=== PATIENT | male | born 1950 | race Caucasian/White ===

== ENCOUNTER → 2019-07-13 10:12 | Outpatient (CLI) | payer MEDICARE, SELFPAY ==
[2019-07-13 10:20] LABS: Microscopic, Urine URINE MICROSCOPIC (MICROSCOPIC)
[2019-07-13 13:24] LABS: Hematocrit 41.4 % (42.0-52.0); Hemoglobin 13.5 g/dL (14.1-18.0)
[2019-07-13 13:31] LABS: Chloride 94 mmol/L (98-107); Sodium 136 mmol/L (136-145)
[2019-07-13 13:32] LABS: Albumin Level 4.2 g/dl (3.5-5.0)
[2019-07-13 13:34] LABS: Blood Urea Nitrogen 53 mg/dl (9-20); Carbon Dioxide 30 mmol/L (22.0-30.0); Estimated Glomerular Filt Rate 38 ml/min (>60); GFR (African American) 46 ML/MIN (>60); Glucose 117 mg/dl (74-100); Phosphorous 3.7 mg/dl (2.5-4.5); Uric Acid 11.3 mg/dl (3.5-8.5)
[2019-07-13 13:55] LABS: Appearance,Urine CLEAR (Clear); Bilirubin,Urine Negative (Negative); Blood, Urine Negative (Negative); Color,Urine YELLOW (Yellow); Glucose,Urine (UA) Negative (Negative); Ketones,Urine Negative (Negative); Leukocyte Esterase,Urine Negative (Negative); Nitrate,Urine Negative (Negative); PH,Urine 6.5 (5.0-8.5); Protein,Urine Negative (Negative); Specific Gravity, Urine 1.015 (1.005-1.030); Urobilinogen,Urine 0.2 EU/dl (0.2)
[2019-07-13 14:29] LABS: Bacteria,Urine Trace /lpf
[2019-07-14 13:07] LABS: Vitamin D 25 Hydroxy 27.5 ng/mL (30.0-100.0)
== END ==
DX: E27.8 Other specified disorders of adrenal gland (principal); E55.9 Vitamin D deficiency, unspecified
CPT/HCPCS: 36415; 80069; 81001; 82652; 84550; 85014; 85018

== ENCOUNTER 2020-04-10 09:37 | Emergency (ER) | payer MEDICARE, SELFPAY ==
[2020-04-10 09:47] VITALS: BP 144/86; PULSE 81; RESP 22; TEMP 36.9; O2SAT 91; BMI 54.7
--- NOTE | 2020-04-10 09:50 | HMH.EDUTC ---
[facility] [place] Disposition Clinical Impression: SMITA (obstructive sleep apnea), Cardiomegaly Pneumonia Qualifiers: Pneumonia type: due to unspecified organism Laterality: right Lung location: lower lobe of lung Qualified Code(s): J18.9 - Pneumonia, unspecified organism Disposition: Home, Self-Care Condition on Discharge: Good Instructions: DI for Pneumonia -- Adult Additional Instructions: You have been tested for COVID19. Those results should be available in 24-48 hours. Follow up with Ms [employer] to get new Cpap machines and supplies, adjust settings, etc. You received an antibiotic shot, but I have also sent medicine to the pharmacy. Please take that medication as directed until it is gone. Prescriptions: Cefdinir [Omnicef 300mg Capsule] 300 mg PO BID #20 cap Transmission Status: Pending to [facility] predniSONE [Prednisone 20mg Tab] 20 mg PO BID 5 Days #10 tab Transmission Status: Pending to [facility] Referrals: Neris Steve [Primary Care Provider] - Time of Disposition: 10:51 Medical Decision Making - Lv Inquiry Pt receiving controlled substance: No Vital Signs: 04/10/20 09:47 Temperature 98.4 F Temperature Source Oral Pulse Rate [Radial] 81 Respiratory Rate 22 Blood Pressure [Right Arm] 144/86 H Blood Pressure Mean [Right Arm] 105 Blood Pressure Source [Right Arm] Automatic Cuff Blood Pressure Position [Right Arm] Sitting 02 Sat by Pulse Oximetry 91 L Oxygen Delivery Method Room Air Orders (Tests/Meds): ORDERS Category Date Time Status Portable CXR [XR chest portable] Stat Exams 04/10/20 10:04 Taken Covid-19 Nasal PCR Sendout Stat Lab 04/10/20 10:45 Received - Radiology Data #1 Image(s): Chest Image Reviewed: Yes I reviewed the patient's radiology image Preliminary Findings: Abnormal (cardiomegaly, ? RLL infiltrate) [facility] [place] HPI - General Stated complaint: o2 levels low, cough Time Seen by Provider: 04/10/20 09:52 - History of Present Illness Provider Complaint: Patient states he hasn't felt well for a few days. Denies fever, but has had body aches and chills. Daughter states he was visibly shaking at times. Has had intermittent productive cough. Has had wheezing. Denies ear pain. Mild sore throat and drainage. Daughter states that his oxygen was low this am. It was in the 70s when he was laying down but has gotten better since he got up. He states he should be using a Cpap machine, but it broke about a month ago and he got one from his sister, but doesn't think that the setting are right and then his mask broke as well. No vomiting, diarrhea. No loss of taste or smell. Onset (ago): day(s) (3) Location: chest Radiation: non-radiation Relieving factors: none Exacerbating factors: none Associated symptoms: cough, fever/chills, malaise Treatments prior to arrival: none - Related Data Previous Rx's Medication Instructions Recorded Cefdinir [Omnicef 300mg Capsule] 300 mg PO BID #20 cap 04/10/20 predniSONE [Prednisone 20mg 20 mg PO BID 5 Days #10 tab 04/10/20 Tab] Allergies Allergy/AdvReac Type Severity Reaction Status Date / Time No Known Drug Allergies Allergy Unknown Unverified 04/30/17 15:11 [facility] History - Hepatitis A Screen Attestation statement:: This patient has been screened for Hepatitis A risk factors. I have reviewed the patient's past medical history: Yes ROS Obtained: Yes All systems reviewed & no additional complaints - Constitutional Constitutional: Reports body ache, Reports chills, Denies fever(s), Reports malaise - ENT Ears, Nose, Mouth, and Throat: Denies otalgia, Reports sinus pain, Reports sore throat - Cardiovascular Cardiovascular: Reports dyspnea - Respiratory Respiratory: Yes cough, Yes wheezing - Gastrointestinal Gastrointestingal: Denies: diarrhea, vomiting Physical Exam - General General appearance: alert, in no apparent distress, obese - Head Head exam: atr
--- NOTE | 2020-04-10 10:04 | XR_ITS ---
PROCEDURE: XR CHEST PORTABLE Referring Doctor: Stacie Sloan Patient Age:69Y CLINICAL HISTORY: sob. Large patient. 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 No convincing effusion but no pneumothorax but of patient may benefit from a PA and lateral chest of symptoms progressed but The upper lobe vascularity is slightly more pronounced than previous study but I would consider WNL no overt CHF. Chest wall view is limited on this portable study but unremarkable IMPRESSION: Prominent cardiomegaly Pulmonary vascularity is normal/upper normal No definitive/nor convincing pneumonia Upper normal markings infrahilar regions bilaterally, and slight opacity left left CP angle most likely reflect the patient's large size. However if respiratory symptoms progress follow-up two-view chest or CT chest may be required to optimally visualize lungs in this large patient Dictated by: Franklyn Stratton MD 04/10/2020 15:23 Franklyn Stratton MD in [place] 04/10/2020 15:23
[2020-04-10 11:16] VITALS: BP 144/86; PULSE 81; RESP 22; TEMP 36.9; O2SAT 91
[2020-04-11 10:08] LABS: Covid-19 Nasal PCR Sendout UK NOT DETECTED
== END 2020-04-10 11:17 | disposition home or self-care (01) ==
PROVIDERS: Emergency Provider Physician Assistant; PCP Nurse Practitioner Family
DX: J18.9 Pneumonia, unspecified organism (principal); G47.33 Obstructive sleep apnea (adult) (pediatric); I51.7 Cardiomegaly; E11.9 Type 2 diabetes mellitus without complications; Z20.828 Contact with and (suspected) exposure to other viral communicable diseases; I10 Essential (primary) hypertension; E78.5 Hyperlipidemia, unspecified; E66.9 Obesity, unspecified; Z68.43 Body mass index [BMI] 50.0-59.9, adult; Z79.899 Other long term (current) drug therapy
CPT/HCPCS: 71045; 96372; 99202; J1030; U0003

== ENCOUNTER 2020-04-10 19:17 | Observation (INO) | payer MEDICARE, SELFPAY ==
[2020-04-10] VITALS (9 sets, daily range): BP systolic 132–165; BP diastolic 68–88; PULSE 85–99; RESP 17–26; TEMP 36.9; O2SAT 74–99; BMI 56.3; BMI 58.6
--- NOTE | 2020-04-10 20:11 | ECG_ITS ---
APPROVED REPORT Exam: Resting ECG HR:91 bpm ECG Measurements Heart Rate 91 AXES ME 210 P 54 QRSd 132 QRS -39 QT 398 T 13 QTc 489 Conclusion Sinus rhythm with 1st degree AV block with frequent premature ventricular complexes Left axis deviation Right bundle branch block Inferior infarct, age undetermined Anteroseptal infarct, age undetermined Abnormal ECG Electronically signed by : Gordon Myers, 04/11/2020 07:22:07
--- NOTE | 2020-04-10 20:11 | XR_ITS ---
PROCEDURE: XR CHEST 2V CLINICAL HISTORY: SOA Shortness of air COMPARISON: CR CXR CHEST(2 VIEWS-NOT PORTABLE) from 12/31/2016 CR XR CHEST PORTABLE from 04/10/2020 FINDINGS: There are low lung volumes. There is cardiomegaly with mild prominence of the pulmonary vessels.. No lobar consolidation or collapse. No acute bony abnormalities. IMPRESSION: There are low lung volumes with cardiomegaly. Pulmonary vessels are slightly prominent and may in part be due to mild CHF versus the poor inspiration. Overall not significantly changed. Dictated by: Rafat Kaur MD 04/11/2020 07:14 Rafat Kaur MD in [place] 04/11/2020 07:14
--- NOTE | 2020-04-10 20:13 | HMH.EDSOB ---
ED Disposition Clinical Impression: Renal insufficiency, SMITA (obstructive sleep apnea) Respiratory failure with hypercapnia Qualifiers: Chronicity: acute Qualified Code(s): J96.02 - Acute respiratory failure with hypercapnia Diabetes mellitus Qualifiers: Diabetes mellitus type: type 2 Diabetes mellitus terminal make up operator insulin use: unspecified terminal make up operator insulin use status Diabetes mellitus complication status: with other specified complication Qualified Code(s): E11.69 - Type 2 diabetes mellitus with other specified complication Obesity Qualifiers: Obesity type: due to excess calories Obesity classification: adult class 3 (BMI >= 40) Serious obesity comorbidity presence: with serious comorbidity Body mass index: BMI 50.0-59.9 Qualified Code(s): E66.01 - Morbid (severe) obesity due to excess calories; Z68.43 - Body mass index [BMI] 50.0-59.9, adult Congestive heart failure Qualifiers: Heart failure type: unspecified Heart failure chronicity: unspecified Qualified Code(s): I50.9 - Heart failure, unspecified Disposition: Admitted As Inpatient Condition on Discharge: Fair Referrals: Neris Steve [Primary Care Provider] - - Critical Care Critical Care Time: No Attestation: On 04/10/20, the high probability of a clinically significant, sudden or life threatening deterioration of the following system(s) required my full and direct attention, intervention and personal management. The time I documented below is in addition to time spent performing reported procedures but includes the following listed in this critical care notation. Medical Decision Making - Medical Records Medical records reviewed: Yes: I reviewed the patient's medical records. - Lv Inquiry Pt receiving controlled substance: No Vital Signs: 04/10/20 19:19 04/10/20 20:19 Temperature 98.4 F Temperature Source Oral Pulse Rate [Apical] 91 H 85 Respiratory Rate 22 24 Blood Pressure [Right Arm] 154/88 H 165/85 H Blood Pressure Mean [Right Arm] 110 111 Blood Pressure Source [Right Arm] Automatic Cuff Automatic Cuff Blood Pressure Position [Right Arm] Sitting Supine 02 Sat by Pulse Oximetry 95 95 Oxygen Delivery Method Nasal Cannula Nasal Cannula Oxygen Flow Rate (LPM) 2 2 - Lab Data Lab results reviewed: Yes: I reviewed the patient's lab results. Lab Results 04/10/20 19:45: WBC 8.3, RBC 5.34, Hgb 15.0, Hct 48.4, MCV 90.6, MCH 28.1, MCHC 31.0 L, RDW 16.0, Plt Count 241, MPV 8.9, Neut % (Auto) 76.7, Lymph % (Auto) 13.1, [place] % (Auto) 6.7, Eos % (Auto) 3.0, Baso % (Auto) 0.6, Neut # (Auto) 6.3, Lymph # (Auto) 1.1, [place] # (Auto) 0.6, Eos # (Auto) 0.3, Baso # (Auto) 0.1 04/10/20 19:45: Sodium 138, Potassium 4.4, Chloride 94 L, Carbon Dioxide 37 H, Anion Gap 11.4, BUN 44 H, Creatinine 1.50 H, Estimated Creat Clear 45, Estimated GFR 47 L, Est GFR ( Amer) 56 L, Glucose 237 H, Calcium 9.3, Total Bilirubin 0.3, Direct Bilirubin 0.3, Conjugated Bilirubin 0.0, Indirect Bilirubin 0.0, Unconjugated Bilirubin 0.1, AST 36, ALT 25, Alkaline Phosphatase 68, Troponin I < 0.01, Total Protein 7.1, Albumin 3.8, Procalcitonin 0.119 04/10/20 19:45: Lactate 1.3 04/10/20 19:45: SARS-CoV-2 IgG Ab (Rapid) Negative, SARS-CoV-2 IgM Ab (Rapid) Negative 04/10/20 19:45: NT-Pro-B Natriuret Pep 643 H, TSH 2.12, Thyroxine (T4) 8.0 04/10/20 19:45: D-Dimer 1.10 04/10/20 20:30: Chlamy pneumoniae PCR Not detected, Adenovirus (PCR) Not detected, B. pertussis DNA (PCR) Not detected, Coronavirus OC43 (PCR) Not detected, Coronavirus HKU1 (PCR) Not detected, Coronavirus 229E (PCR) Not detected, SARS-CoV-2 (PCR) Not detected, Coronavirus NL63 (PCR) Not detected, Human Metapneumovir PCR Not detected, Influenza A (H1) PCR Not detected, Influ A (H1N1/09) PCR Not detected, Influenza A (H3) PCR Not detected, Influenza Type A (PCR) Not detected, Influenza Type B (PCR) Not detected, M. pneumoniae (PCR) Not detected, Parainfluenza 1 (PCR) Not detected, Parainfluenza 2 (PCR) Not detected, Parainfluenza 3 (PC
[2020-04-10 20:39] LABS: ABG Base Excess 12.3 mmol/L (-2.4-2.3); ABG HCO3 39.1 mmhg (22.0-26.0); ABG Oxygen Saturation 95 % (90-100); ABG PH 7.28 mmol/L (7.35-7.45); ABG PO2 84.6 mmhg (80-100); ABG TCO2 41.7 mmhg (23-27)
[2020-04-10 20:40] LABS: ABG PCO2 86.1 mmhg (35.0-45.0); Allen's Test Y; Oxygen 2 %; Source R/R
[2020-04-10 20:41] LABS: Adenovirus,PCR Not Detected (NotDetected); Bordetella Pertussis Not Detected (NotDetected); Chlamydophila Pneumoniae, PCR Not Detected (NotDetected); Coronavirus 19, PCR Not Detected (NotDetected); Coronavirus 229E Not Detected (NotDetected); Coronavirus NL63 Not Detected (NotDetected); Coronavirus OC43 Not Detected (NotDetected); Coronovirus HKU1,PCR Not Detected (NotDetected); Human Metapneumovirus Not Detected (NotDetected); Influenza A, PCR Not Detected (NotDetected); Influenza AH1, 2009 Not Detected (NotDetected); Influenza AH1, PCR Not Detected (NotDetected); Influenza AH3,PCR Not Detected (NotDetected); Influenza B, PCR Not Detected (NotDetected); Mycoplasma Pneumoniae, PCR Not Detected (NotDetected); Parainfluenza 1, PCR Not Detected (NotDetected); Parainfluenza 2, PCR Not Detected (NotDetected); Parainfluenza 3, PCR Not Detected (NotDetected); Parainfluenza 4, PCR Not Detected (NotDetected); Respiratory Syncytial Virus Not Detected (NotDetected); Rhinovirus/Enterovirus Not Detected (NotDetected)
[2020-04-10 20:41] LABS: Basophils # 0.1 K/mm3 (0-0.2); Basophils % 0.6 % (0.1-2.0); Chloride 94 mmol/L (98-107); Eosinophils # 0.3 K/mm3 (0.0-0.4); Hematocrit 48.4 % (42.0-52.0); Lymphocytes # 1.1 K/mm3 (0.7-4.5); Lymphocytes % 13.1 % (10-50); Mean Corpuscular Hemoglobin 28.1 pg (27.0-31.2); Mean Corpuscular Volume 90.6 fl (80-94); Mean Platelet Volume 8.9 fl (7.4-10.4); Monocytes # 0.6 K/mm3 (0.1-1.0); Monocytes % 6.7 % (1.7-9.3); Neutrophils # 6.3 K/mm3 (1.8-7.8); Neutrophils % 76.7 % (37.0-80.0); Platelet Count 241 K/mm3 (142-424); Potassium 4.4 mmoL/L (3.5-5.1); Red Blood Count 5.34 M/mm3 (4.60-6.20); Sodium 138 mmol/L (136-145); White Blood Count 8.3 K/mm3 (4.8-10.8)
[2020-04-10 20:43] LABS: Alanine Aminotransferase 25 U/L (12-78); Bilirubin,Unconjugated 0.1 mg/dL (0.0-1.1); Blood Urea Nitrogen 44 mg/dl (9-20); Creatinine Clearance Estimated 45 mL/min (50-200); Estimated Glomerular Filt Rate 47 ml/min (>60); GFR (African American) 56 ML/MIN (>60)
[2020-04-10 20:44] LABS: Albumin Level 3.8 g/dl (3.5-5.0); Alkaline Phosphatase 68 U/L (38-126); Aspartate Amino Transferase 36 U/L (17-59); Bilirubin,Direct 0.3 mg/dl (0.0-0.4); Bilirubin,Total 0.3 mg/dl (0.2-1.3); Calcium 9.3 mg/dl (8.4-10.2); Glucose 237 mg/dl (74-100); Lactic Acid 1.3 mmol/L (0.7-2.1); Total Protein,Serum 7.1 g/dl (6.3-8.2)
[2020-04-10 21:01] LABS: Procalcitonin 0.119 ng/mL (0.0-2.0)
[2020-04-10 21:07] LABS: NT Pro Brain Natriuretic Pep. 643 pg/mL (0-125)
[2020-04-10 21:29] LABS: Thyroid Stimulating Hormone 2.12 uIU/mL (0.465-4.68)
[2020-04-10 21:30] LABS: Coronavirus 19 IgG Antibody Negative (Negative); Coronavirus 19 IgM Antibody Negative (Negative)
[2020-04-10 21:31] LABS: Anion Gap 11.4 mEq/L (5-15); Carbon Dioxide 37 mmol/L (22.0-30.0); Troponin I < 0.01 ng/ml (0.00-0.034)
--- NOTE | 2020-04-10 22:57 | PC.NURSE ---
Staci order per Anahi in pharmacy
--- NOTE | 2020-04-10 23:32 | PC.NURSE ---
patient up to floor via stretcher.
[2020-04-11] VITALS (16 sets, daily range): BP systolic 118–146; BP diastolic 57–87; PULSE 80–110; RESP 18–26; TEMP 36.1–37.4; O2SAT 92–99; BMI 58.8
[2020-04-11 00:16] LABS: POC Glucose,Bedside 188 (70-110)
--- NOTE | 2020-04-11 00:16 | PC.WOUNDNOTE ---
Wound Location: LLQ ABD scab, left flank rash Length: scab- circular 0.5cm x 0.5cm Inflammation/swelling Y/N: Y Pain and/or tenderness Y/N: N Color: Small amount of bordering redness to scab and red, unraised rash area
--- NOTE | 2020-04-11 00:39 | PC.NURSE ---
pt's daughter will bring in POA and living will tomorrow
[2020-04-11 00:44] LABS: Troponin I < 0.01 ng/ml (0.00-0.034)
[2020-04-11 03:12] LABS: Troponin I < 0.01 ng/ml (0.00-0.034)
[2020-04-11 06:21] LABS: POC Glucose,Bedside 243 (70-110)
--- NOTE | 2020-04-11 06:27 | PC.NURSE ---
pt has rested some t/o shift, no acute changes since prior assessment on admission, pt did become confused one time during the night, this morning pt does not seem to be as confused, is currently able to tell me his name and birthdate, al catheter patent and is now draining red tinged urine, urine was yellow at admission, pt remains at bipap with O2 sats 95-99%, HR 99-106, systolic BP 146-148, pt has no complaints of SOA or chest pain
--- NOTE | 2020-04-11 07:10 | HMH.HP ---
*Admission Date: 04/10/20 *Chief complaint: Shortness of breath *History of present illness: 69-year-old male with diabetes and rheumatoid arthritis presented to the emergency department with worsening shortness of breath after being seen in the urgent treatment clinic earlier in the day. Patient reported sensation of wheezing and dyspnea. Patient believes this all began after his current CPAP/BiPAP, which is rather old, malfunctioned and was no longer effective. He tried to make up for this by using his sisters CPAP but this did not seem to help him as much as his personal device. Patient reports his CPAP malfunction a few days ago . He presented to the [facility] and was treated but shortly thereafter returned to the emergency department with worsening shortness of breath. He denies symptoms of infection. He denies chest pain. Work-up in the ER revealed acute on chronic respiratory failure with mild acidosis and hypercapnia consistent with acute on chronic hypercapnia. Patient was also felt to have some element of congestive heart failure. Patient was admitted and placed on BiPAP overnight. Nursing staff reports patient had episodes of confusion initially but these improved as the night wore on and he has become oriented to person and place. Patient does note improvement this morning. [facility] History Medical History: Reports:: Congestive Heart Failure, Diabetes Mellitus Type 2, Hyperlipidemia, Hypertension Denies:: Cancer, Diabetes Mellitus Type 1, Internal Pacemaker, MRSA *Have you ever received a pneumonia vaccine?: Yes *Have you received a flu vaccine this season?: Yes Other Medical History: Reports: Arthritis Laterality Cases: Right: Total Hip Replacement Other Surgeries: Yes: Colonoscopy. No: Pacemaker Amputation: No Fractures: No - *Social History Last grade of school completed: High school graduate Smoking Status: Never smoker Alcohol Intake: former Alcohol Intake Frequency:: other *Occupational Status:: retired Housing: house Household Members: children *Travel in the last 8 weeks: None Family Hx:: Cancer, Coronary Artery Disease, Hyperlipidemia, Hypertension Review of Systems - Constitutional Denies body ache(s), Denies chills, Denies lack of energy, Denies malaise, Denies night sweats - ENT Denies change in voice, Denies ear pain - *Cardiovascular Reports shortness of breath with activity, Reports generalized swelling, Denies chest pain, Denies chest pain at rest, Denies chest pain with activity - *Respiratory Reports cough, Reports shortness of breath, Reports shortness of breath with activity, Reports wheezing - *Gastrointestinal Denies abdominal pain, Denies belching, Denies bloating, Denies heartburn - *Genitourinary Denies difficulty urinating - *Musculoskeletal Reports joint pain - *Neurologic Denies headache(s), Denies seizure-like activity Meds Home Medications Medication Instructions Recorded Confirmed Type Cefdinir [Omnicef 300mg Capsule] 300 mg PO BID 04/10/20 04/10/20 History Fenofibrate,Micronized 200 mg PO HS 04/10/20 04/11/20 History [Fenofibrate] Furosemide [Lasix 40mg tab] 40 mg PO QID 04/10/20 04/11/20 History Insulin Aspart Prot/Insuln Asp 48 units SQ TID 04/10/20 04/11/20 History [Novolog Mix 70/30 Flexpen 100 Units/mL 3mL] Insulin Glargine,Hum.rec.anlog 36 units SQ DAILY 04/10/20 04/11/20 History [Lantus Solostar 100 Units/mL 3mL flexpen] Metoprolol Tartrate [Lopressor 100 100 mg PO BID 04/10/20 04/11/20 History mg Tablets] Mirabegron [Myrbetriq] 50 mg PO DAILY 04/10/20 04/11/20 History Pravastatin Sodium [Pravachol 40mg 40 mg PO HS 04/10/20 04/11/20 History Tablet] Tamsulosin HCl [Flomax 0.4mg 0.8 mg PO HS 04/10/20 04/11/20 History capsule] lisinopriL [Lisinopril 10mg Tab] 10 mg PO DAILY 04/10/20 04/11/20 History predniSONE [Prednisone 20mg 20 mg PO BID 04/10/20 04/10/20 History Tab] Allergies Allergy/AdvReac Typ
[2020-04-11 07:29] LABS: ABG Base Excess 6.4 mmol/L (-2.4-2.3); ABG HCO3 33.4 mmhg (22.0-26.0); ABG Oxygen Saturation 80 % (90-100); ABG PH 7.27 mmol/L (7.35-7.45); ABG TCO2 35.7 mmhg (23-27)
--- NOTE | 2020-04-11 07:31 | P.CONPHA_ITS ---
[facility] Pharmacy VTE Monitoring - Patient Demographics Admission date: 04/10/20 Report Date: 04/11/20 Time: 07:31 Allergies/Adverse Reactions: Patient Allergies Sulfa (Sulfonamide Antibiotics) Allergy (Verified 04/11/20 01:01) Height: 1.7 m Weight: 169.672 kg Patient Problems: Current Active Problems SMITA (obstructive sleep apnea) (Acute) Respiratory failure with hypercapnia (Acute) Renal insufficiency (Acute) Diabetes mellitus (Acute) Obesity (Acute) Acute and chronic respiratory failure (Acute) Acute respiratory failure with hypoxia and hypercapnia (Acute) Morbid obesity with BMI of 50.0-59.9, adult (Acute) Rheumatoid arthritis (Acute) - VTE Risk Labs: VTE Related Lab Results Hgb 15.0 g/dL (14.1-18.0) 04/10/20 19:45 Hct 48.4 % (42.0-52.0) 04/10/20 19:45 Plt Count 241 K/mm3 (142-424) 04/10/20 19:45 BUN 44 mg/dl (9-20) H 04/10/20 19:45 Creatinine 1.50 mg/dl (0.66-1.25) H 04/10/20 19:45 Estimated Creat Clear 45 mL/min (50-200) 04/10/20 19:45 VTE Score: 10 VTE Risk Level: Moderate Risk - Prophylaxis VTE Prophylaxis Ordered?: Yes Types of VTE Prophylaxis: TEDS Knee High Location of Applied Device: Bilateral Lower Extremeties
[2020-04-11 07:33] LABS: Basophils % 0.2 % (0.1-2.0); Eosinophils % 0.2 % (0.1-12.0); Hematocrit 51.9 % (42.0-52.0); Hemoglobin 15.4 g/dL (14.1-18.0); Lymphocytes # 0.4 K/mm3 (0.7-4.5); Lymphocytes % 5.6 % (10-50); Mean Corpuscular HGB Conc 29.7 g/dL (31.8-35.4); Mean Corpuscular Hemoglobin 27.2 pg (27.0-31.2); Mean Corpuscular Volume 91.6 fl (80-94); Mean Platelet Volume 8.9 fl (7.4-10.4); Monocytes # 0.2 K/mm3 (0.1-1.0); Monocytes % 2.9 % (1.7-9.3); Neutrophils # 6.7 K/mm3 (1.8-7.8); Neutrophils % 91.1 % (37.0-80.0); Platelet Count 247 K/mm3 (142-424); Red Blood Count 5.66 M/mm3 (4.60-6.20); Red Cell Distribution Width 15.6 % (11.5-17.5); White Blood Count 7.3 K/mm3 (4.8-10.8)
[2020-04-11 07:36] LABS: Chloride 96 mmol/L (98-107); Potassium 5.5 mmoL/L (3.5-5.1); Sodium 141 mmol/L (136-145)
[2020-04-11 07:38] LABS: Blood Urea Nitrogen 41 mg/dl (9-20); Creatinine Clearance Estimated 42 mL/min (50-200); Estimated Glomerular Filt Rate 43 ml/min (>60); GFR (African American) 52 ML/MIN (>60)
[2020-04-11 07:39] LABS: Calcium 9.3 mg/dl (8.4-10.2); Cholesterol 155 mg/dl (140-200); Glucose 267 mg/dl (74-100); Triglycerides 176 mg/dl (30-150); VLDL Cholesterol 35 mg/dL (0-40)
[2020-04-11 07:40] LABS: Chol/HDL Ratio 2.9 (1-3.5); HDL Cholesterol 53 mg/dl (40-60)
[2020-04-11 07:44] LABS: MANUAL DIFFERENTIAL MANUAL DIFFERENTIAL (MANUAL DIFF)
[2020-04-11 07:46] LABS: Anion Gap 12.5 mEq/L (5-15); Carbon Dioxide 38 mmol/L (22.0-30.0)
[2020-04-11 07:50] LABS: Allen's Test Acceptable; Source Right Radial
[2020-04-11 07:52] LABS: ABG PCO2 74.5 mmhg (35.0-45.0)
[2020-04-11 07:53] LABS: ABG PO2 47.1 mmhg (80-100)
--- NOTE | 2020-04-11 09:30 | PC.NURSE ---
Spoke to about Bipap settings, changed to S/T=20/10. Pt getting back better volumes. Pulse ox reading 92%
--- NOTE | 2020-04-11 09:38 | HMH.PHAINT ---
MEDICATION RECONCILIATION COMPLETED ON PATIENT USING EXTERNAL FILL HISTORY FROM PHARMACY. -SAYRA GARCÍA, STAND
--- NOTE | 2020-04-11 09:45 | PC.NURSE ---
Notified Dr. Crowder of critical abg at [id number]. He ordered pt to cont on bipap at this time.
[2020-04-11 10:10] LABS: Lymphocytes % 9 % (10-50); Monocytes % 2 % (2-9); Neutrophils % 89 % (42-76); Platelet Estimate Normal; RBC Morphology Normal; Total Cells Counted 100
[2020-04-11 11:20] LABS: POC Glucose,Bedside 184 (70-110)
--- NOTE | 2020-04-11 11:29 | HMH.CNCARD ---
History of Present Illness Consult date: 04/11/20 Requesting physician: Gordon Crowder Consult reason: shortness of breath Chief complaint: Shortness of breath History of present illness: This is a 69-year-old white gentleman who was admitted to the hospital with worsening shortness of breath after being seen in the urgent treatment center yesterday. The patient states that he was getting progressively more short of breath and having wheezing noted with his shortness of breath. He denied any bilateral lower extremity edema. He states that his shortness of breath initially began after his CPAP/BiPAP at home began to malfunction and was no longer working. He borrowed his sister CPAP machine which was just not working for him like his and did. He went to the urgent treatment center and was worked up and given a steroid and a shot. He states that his symptoms worsened after leaving the urgent treatment center and then he went to the emergency department. He states that he has not had any chest pain or pressure. He denies any lower extremity edema. He denies any fever, chills, nausea, vomiting, diarrhea. He does have associated PND and orthopnea with his shortness of breath. While in the emergency department he was found to have acute on chronic respiratory failure and he was hypercapnic. The patient has been treated with BiPAP overnight and through the day today. He states that shortness of breath is somewhat better. He did have a little confusion this morning but he is alert and oriented today. His daughter states that he was really confused at home prior to coming into the emergency department but this has improved. He has ruled out for an [place]. [facility] History I have reviewed the patient's past medical history: Yes Medical History: Reports:: Congestive Heart Failure, Diabetes Mellitus Type 2, Hyperlipidemia, Hypertension Denies:: Cancer, Diabetes Mellitus Type 1, Internal Pacemaker, MRSA *Have you ever received a pneumonia vaccine?: Yes *Have you received a flu vaccine this season?: Yes Other Medical History: Reports: Arthritis Laterality Cases: Right: Total Hip Replacement Other Surgeries: Yes: Colonoscopy. No: Pacemaker Amputation: No Fractures: No - *Social History Last grade of school completed: High school graduate Smoking Status: Never smoker Alcohol Intake: former Alcohol Intake Frequency:: other *Occupational Status:: retired Housing: house Household Members: children *Travel in the last 8 weeks: None Family Hx:: Cancer, Coronary Artery Disease, Hyperlipidemia, Hypertension Meds Home Medications Medication Instructions Recorded Confirmed Type Cefdinir [Omnicef 300mg Capsule] 300 mg PO BID 04/10/20 04/10/20 History Fenofibrate,Micronized 200 mg PO HS 04/10/20 04/11/20 History [Fenofibrate] Furosemide [Lasix 40mg tab] 40 mg PO DIRECTED 04/10/20 04/11/20 History Insulin Aspart Prot/Insuln Asp 48 units SQ TID 04/10/20 04/11/20 History [Novolog Mix 70/30 Flexpen 100 Units/mL 3mL] Insulin Glargine,Hum.rec.anlog 36 units SQ DAILY 04/10/20 04/11/20 History [Lantus Solostar 100 Units/mL 3mL flexpen] Metoprolol Tartrate [Lopressor 100 100 mg PO BID 04/10/20 04/11/20 History mg Tablets] Mirabegron [Myrbetriq] 50 mg PO DAILY 04/10/20 04/11/20 History Pravastatin Sodium [Pravachol 40mg 40 mg PO HS 04/10/20 04/11/20 History Tablet] Tamsulosin HCl [Flomax 0.4mg 0.8 mg PO HS 04/10/20 04/11/20 History capsule] lisinopriL [Lisinopril 10mg Tab] 10 mg PO DAILY 04/10/20 04/11/20 History predniSONE [Prednisone 20mg 20 mg PO BID 04/10/20 04/10/20 History Tab] Allergies Allergy/AdvReac Type Severity Reaction Status Date / Time Sulfa (Sulfonamide Allergy Verified 04/11/20 01:01 Antibiotics) Exam Vital signs and Labs for Last 24 Hours: Temp Pulse Resp BP Pulse Ox 97.0 F L 87 20 128/79 92 L 04/11/20 11:08 04/11/20 11:08 04/11/20 11:08 04/11/20 11
--- NOTE | 2020-04-11 12:53 | PC.NURSE ---
RA sat at rest=80%, returned pt on 4 L NC
[2020-04-11 15:38] LABS: POC Glucose,Bedside 319 (70-110)
--- NOTE | 2020-04-11 16:36 | PC.NURSE ---
Pt alert and oriented. Wheezes in upper lobes. Pt has been on bipap most of day. CB in reach. Pt alert and oriented. NAD. No c/o at this time. Has been turned and repositioned but mostly returns to supine position. VSS. Will cont to mx this shift.
[2020-04-11 22:05] LABS: POC Glucose,Bedside 341 (70-110)
[2020-04-12] VITALS (16 sets, daily range): BP systolic 114–153; BP diastolic 68–95; PULSE 80–100; RESP 19–25; TEMP 36.2–37.4; O2SAT 92–96; BMI 58.3
[2020-04-12 06:30] LABS: POC Glucose,Bedside 260 (70-110)
[2020-04-12 06:37] LABS: ABG Base Excess 13.9 mmol/L (-2.4-2.3); ABG HCO3 39.8 mmhg (22.0-26.0); ABG Oxygen Saturation 95 % (90-100); ABG PH 7.33 mmol/L (7.35-7.45); ABG PO2 76.7 mmhg (80-100); ABG TCO2 42.1 mmhg (23-27)
[2020-04-12 06:40] LABS: Allen's Test Acceptable; Oxygen 40 %; Pressure Support 10; Source Left Radial; Tidal Volume 20/10; Vent Rate 21
[2020-04-12 06:42] LABS: ABG PCO2 76.6 mmhg (35.0-45.0)
--- NOTE | 2020-04-12 06:46 | PC.NURSE ---
Critical lab value PCO2 76 reported to Vel KENNY at this time.
--- NOTE | 2020-04-12 07:03 | HMH.ACPN2 ---
Internal Medicine - PN: Subj *Date: 04/12/20 *Time: 07:03 Interval history: Patient's only complaint this morning is some pain that he had in his leg which was medicated with Tylenol which did not quite eliminate the pain. Otherwise he reports improvement in breathing. He does clarify that he does not wear oxygen at home other than the oxygen he receives through his home BiPAP machine. Exam Vital signs and Labs for Last 24 Hours: Temp Pulse Resp BP Pulse Ox 99.4 F 94 H 22 114/73 96 04/12/20 04:00 04/12/20 06:26 04/12/20 04:00 04/12/20 04:00 04/12/20 04:00 Laboratory Results - last 24 hr 04/11/20 06:00: Specimen Source Right radial, O2 % 2l nc, ABG pH 7.27 L, ABG pCO2 74.5 H, ABG pO2 47.1 L, ABG HCO3 33.4 H, ABG Total CO2 35.7 H, ABG O2 Saturation 80 L*, ABG Base Excess 6.4 H, Rafat Test Acceptable 04/11/20 06:58: WBC 7.3, RBC 5.66, Hgb 15.4, Hct 51.9, MCV 91.6, MCH 27.2, MCHC 29.7 L, RDW 15.6, Plt Count 247, MPV 8.9, Neut % (Auto) 91.1 H, Lymph % (Auto) 5.6 L, [place] % (Auto) 2.9, Eos % (Auto) 0.2, Baso % (Auto) 0.2, Neut # (Auto) 6.7, Lymph # (Auto) 0.4 L, [place] # (Auto) 0.2, Eos # (Auto) 0.0, Baso # (Auto) 0.0, Total Counted 100, Neutrophils % (Manual) 89 H, Lymphocytes % (Manual) 9 L, Monocytes % (Manual) 2, Platelet Estimate Normal, RBC Morphology Normal 04/11/20 06:58: Sodium 141, Potassium 5.5 H D, Chloride 96 L, Carbon Dioxide 38 H, Anion Gap 12.5, BUN 41 H, Creatinine 1.60 H, Estimated Creat Clear 42, Estimated GFR 43 L, Est GFR ( Amer) 52 L, Glucose 267 H, Calcium 9.3, Magnesium 2.0, Triglycerides 176 H, Cholesterol 155, LDL Cholesterol Direct 65.90 L, VLDL Cholesterol 35, HDL Cholesterol 53, Cholesterol/HDL Ratio 2.9 04/11/20 11:07: POC Glucose 184 H 04/11/20 15:19: POC Glucose 319 H* 04/11/20 20:16: POC Glucose 341 H* 04/12/20 05:58: POC Glucose 260 H 04/12/20 06:30: Specimen Source Left radial, O2 % 40, ABG pH 7.33 L, ABG pCO2 76.6 H, ABG pO2 76.7 L, ABG HCO3 39.8 H, ABG Total CO2 42.1 H, ABG O2 Saturation 95, ABG Base Excess 13.9 H, Rafat Test Acceptable, Vent Rate 21, Tidal Volume 20/10 I & O for Last 24 hours: Intake & Output 04/09/20 04/10/20 04/11/20 04/12/20 11:59 11:59 11:59 11:59 Intake Total 1280 / 1280 850 / 850 Output Total 1979 2375 / 2375 Balance -700 / -700 -1525 / -1525 Weight 374 lb 1 oz 372 lb 2.244 oz - Constitutional no acute distress - *Routine Respiratory Exam Present: CTA bilaterally - *Routine Cardiovascular Exam Present: RRR - *Routine Abdominal Exam Present: soft, normoactive bowel sounds. Absent: tenderness Assessment and Plan (1) Acute respiratory failure with hypoxia and hypercapnia Status: Acute Category: Medical Code(s): J96.01 - Acute respiratory failure with hypoxia; J96.02 - Acute respiratory failure with hypercapnia (2) Acute and chronic respiratory failure Status: Acute Category: Medical Code(s): J96.20 - Acute and chronic respiratory failure, unspecified whether with hypoxia or hypercapnia (3) Morbid obesity with BMI of 50.0-59.9, adult Status: Acute Category: Medical Code(s): E66.01 - Morbid (severe) obesity due to excess calories; Z68.43 - Body mass index [BMI] 50.0-59.9, adult (4) Congestive heart failure Status: Suspected Qualifiers: Heart failure type: unspecified Heart failure chronicity: unspecified Qualified Code(s): I50.9 - Heart failure, unspecified Category: Medical Code(s): I50.9 - Heart failure, unspecified (5) Diabetes mellitus Status: Acute Qualifiers: Diabetes mellitus type: type 2 Diabetes mellitus fci insulin use: unspecified superintendent terminal insulin use status Diabetes mellitus complication status: with other specified complication Qualified Code(s): E11.69 - Type 2 diabetes mellitus with other specified complication Category: Medical Code(s): E11.9 - Type 2 diabetes mellitus without complications (6) SMITA (obstructive sleep apnea) Status: Acute Categ
--- NOTE | 2020-04-12 07:05 | SW/DCPLANNER ---
Addendum entered by Luz Young 04/13/20 08:51: SENT REFERRAL FOR A TRILOGY FOR THIS PATIENT , DR MCDANIEL STATED HE THOUGHT THIS WAS THE BEST FIT FOR PATIENT....IT WILL BE DELIVERED TO THE HOSPITAL TODAY AND PATIENT WILL SLEEP WITH IT TONIGHT TO ENSURE SETTINGS ARE CORRECT WITH AN ANTICIPATED DISCHARGE ON THURS PENDING NO SETBACKS.. I HAVE ALSO NOTIFIED RESP ROLL WRAPPER, KHUSHBOO DODD IT WILL BE DELIVERED THIS MORNING SOMETIME.. Original Note: WENT TO SEE PATIENT AND DAUGHTER AT BEDSIDE REGARDING PATIENT NEEDS A NEW C-PAP... PATIENT STATED HE HAS ONE FROM A COMPANY IN [place] THAT IS NO LONGER THERE CALLED [employer]... HE SAID HE HASN'T BEEN WEARING IT BECAUSE IT DOESN'T WORK RIGHT.. HE SAID HE IS IN NEED OF ANOTHER ONE.. I CALLED RODOLFO YESTERDAY TO SEE WHAT HAS TO BE DONE, CRISTY STATED HE WILL NEED ANOTHER SLEEP STUDY IN ORDER FOR HIM TO GET ANOTHER NEW ONE. I HAVE SHARED THIS WITH TUNNEL WORKER TO INFORM MD THAT ONCE PATIENT IS READY FOR DISCHARGE, HE WILL NEED TO BE SET UP FOR A SLEEP STUDY AND WILL NEED TO READINGS IN ORDER TO SET HIM BACK UP AT HOME. PATIENT MAY DISCHARGE IN THE NEXT FEW DAYS, WILL MONITOR FOR ANY OTHER NEEDS PATIENT MAY REQUIRE AT HOME.. PATIENT LIVES WITH SON...
[2020-04-12 08:16] LABS: Basophils % 0.1 % (0.1-2.0); Eosinophils % 0.1 % (0.1-12.0); Hematocrit 46.7 % (42.0-52.0); Hemoglobin 14.8 g/dL (14.1-18.0); Lymphocytes # 0.7 K/mm3 (0.7-4.5); Lymphocytes % 7.4 % (10-50); Mean Corpuscular HGB Conc 31.6 g/dL (31.8-35.4); Mean Corpuscular Hemoglobin 29.1 pg (27.0-31.2); Mean Corpuscular Volume 92.1 fl (80-94); Mean Platelet Volume 9.7 fl (7.4-10.4); Monocytes # 0.5 K/mm3 (0.1-1.0); Monocytes % 4.7 % (1.7-9.3); Neutrophils # 8.4 K/mm3 (1.8-7.8); Neutrophils % 87.8 % (37.0-80.0); Platelet Count 241 K/mm3 (142-424); Red Blood Count 5.08 M/mm3 (4.60-6.20); Red Cell Distribution Width 15.5 % (11.5-17.5); White Blood Count 9.6 K/mm3 (4.8-10.8)
[2020-04-12 08:17] LABS: Chloride 94 mmol/L (98-107); Sodium 139 mmol/L (136-145)
--- NOTE | 2020-04-12 08:17 | PC.NURSE ---
Pt is alert and oriented x4. Pt rested intermittently t/o shift. Pt tolerated Bipap well t/o night. Tolerated 4 lnc well this am. Tolerated diet well with no complaints. No n/v/d. FC site noted c/d/i. Adequate urine output noted. No BM noted this am. Refused teds. VSS. NSR on cardiac rehabilitation specialist this shift. Remains safe. Call light within reach. Will continue to monitor.
[2020-04-12 08:20] LABS: Blood Urea Nitrogen 55 mg/dl (9-20); Creatinine Clearance Estimated 38 mL/min (50-200); Estimated Glomerular Filt Rate 40 ml/min (>60); GFR (African American) 49 ML/MIN (>60)
[2020-04-12 08:21] LABS: Calcium 9.1 mg/dl (8.4-10.2); Glucose 315 mg/dl (74-100)
[2020-04-12 08:22] LABS: MANUAL DIFFERENTIAL MANUAL DIFFERENTIAL (MANUAL DIFF)
[2020-04-12 08:32] LABS: Carbon Dioxide 39 mmol/L (22.0-30.0)
[2020-04-12 09:03] LABS: Lymphocytes % 7 % (10-50); Monocytes % 3 % (2-9); Neutrophils % 87 % (42-76); Platelet Estimate Normal; RBC Morphology Normal; Total Cells Counted 100
[2020-04-12 10:33] LABS: POC Glucose,Bedside 343 (70-110)
--- NOTE | 2020-04-12 11:00 | HMH.PNCARD ---
Subjective Date: 04/12/20 Time: 10:45 Principal diagnosis: diastolic chf Interval history: This is a 69-year-old white gentleman who was admitted to the hospital with shortness of breath after being seen in the urgent treatment center. The patient's home CPAP/BiPAP had started malfunctioning and was no longer working. He was borrowing his sister CPAP machine which was not helping him like his own deviated. The patient has been on BiPAP here at the hospital as well as getting IV diuresis. He states that his shortness of breath is significantly improved and he is feeling much better. He states that he really is not short of breath that much at all anymore. He denies any chest pain or pressure. He denies any lower extremity edema. He denies any fever, chills, nausea, vomiting or diarrhea. Exam Vital signs and Labs for Last 24 Hours: Temp Pulse Resp BP Pulse Ox 98.0 F 95 H 20 153/95 H 93 L 04/12/20 08:00 04/12/20 09:28 04/12/20 08:00 04/12/20 08:00 04/12/20 09:30 Laboratory Results - last 24 hr 04/11/20 11:07: POC Glucose 184 H 04/11/20 15:19: POC Glucose 319 H* 04/11/20 20:16: POC Glucose 341 H* 04/12/20 05:58: POC Glucose 260 H 04/12/20 06:30: Specimen Source Left radial, O2 % 40, ABG pH 7.33 L, ABG pCO2 76.6 H, ABG pO2 76.7 L, ABG HCO3 39.8 H, ABG Total CO2 42.1 H, ABG O2 Saturation 95, ABG Base Excess 13.9 H, Rafat Test Acceptable, Vent Rate 21, Tidal Volume 20/10 04/12/20 07:48: WBC 9.6 D, RBC 5.08, Hgb 14.8, Hct 46.7, MCV 92.1, MCH 29.1, MCHC 31.6 L, RDW 15.5, Plt Count 241, MPV 9.7, Neut % (Auto) 87.8 H, Lymph % (Auto) 7.4 L, [place] % (Auto) 4.7, Eos % (Auto) 0.1, Baso % (Auto) 0.1, Neut # (Auto) 8.4 H, Lymph # (Auto) 0.7, [place] # (Auto) 0.5, Eos # (Auto) 0.0, Baso # (Auto) 0.0, Total Counted 100, Neutrophils % (Manual) 87 H, Band Neutrophils % 3.0, Lymphocytes % (Manual) 7 L, Monocytes % (Manual) 3, Platelet Estimate Normal, RBC Morphology Normal 04/12/20 07:48: Sodium 139, Potassium 5.0, Chloride 94 L, Carbon Dioxide 39 H, Anion Gap 11.0, BUN 55 H D, Creatinine 1.70 H, Estimated Creat Clear 38, Estimated GFR 40 L, Est GFR ( Amer) 49 L, Glucose 315 H, Calcium 9.1 04/12/20 10:23: POC Glucose 343 H* I & O for Last 24 hours: Intake & Output 04/09/20 04/10/20 04/11/20 04/12/20 23:59 23:59 23:59 23:59 Intake Total 1000 / 1000 1000 / 1120 490 / 490 Output Total 1300 / 1300 2080 / 2805 1175 / 1175 Balance -300 / -300 -1080 / -1685 -685 / -685 Weight 374 lb 1 oz 374 lb 12.573 oz 372 lb 2.244 oz Narrative: Echocardiogram shows a normal ejection fraction at greater than 55%. There is no mitral regurgitation. The aortic valve appears to be anatomically normal. - Constitutional no acute distress, morbidly obese - *Routine HEENT Exam Head: Present: normocephalic, atraumatic Eye: Present: EOMI, PERRL ENT: Present: mucous membranes moist - *Routine Neck Exam Present: supple, full ROM, normal carotid upstroke. Absent: JVD, carotid bruit, lymphadenopathy - *Routine Respiratory Exam Present: decreased breath sounds, CTA bilaterally - *Routine Cardiovascular Exam Present: RRR, Normal S1, Normal S2. Absent: murmur, gallop - *Routine Abdominal Exam Present: soft, normoactive bowel sounds. Absent: tenderness, distended - *Routine Extremities Exam Present: full ROM, pulses intact, normal capillary refill. Absent: cyanosis, clubbing, edema - *Routine Skin Exam Present: intact, warm. Absent: erythema, rash - *Routine Neurological Exam Present: alert, oriented X3, CN II-XII intact. Absent: sensory deficit, motor deficit Progress Note: A&P (1) Acute respiratory failure with hypoxia and hypercapnia Status: Acute (2) Acute and chronic respiratory failure Status: Acute (3) Morbid obesity with BMI of 50.0-59.9, adult Status: Acute (4) Congestive heart failure Status: Suspected (5) Diabetes mellitus Status: Acute (6) SMITA (obstructive sleep apnea) Status: Acute (7) Rheumatoid art
[2020-04-12 15:46] LABS: POC Glucose,Bedside 352 (70-110)
--- NOTE | 2020-04-12 18:11 | PC.NURSE ---
PT STAYED AWAKE IN BED UNTIL 1400 TODAY OF NC 4L. PT THEN REQUESTED TO TAKE A NAP AND HAVE HIS BIPAP PLACED ON HIM. UNABLE TO WEAN O2 O2 STAT STAYD IN 92-93% RANGE WITH O2 NC. PT NOW AWAKE WITH NC IN PLACE SITTING UP EATING DINNER. DENIES ANY PAIN AT THIS TIME OR FURTHER NEEDS. DAUGHTER AT BEDSIDE.
[2020-04-12 21:00] LABS: POC Glucose,Bedside 448 (70-110)
[2020-04-13] VITALS (15 sets, daily range): BP systolic 118–155; BP diastolic 63–93; PULSE 60–90; RESP 16–24; TEMP 36.6–37.1; O2SAT 3–96; BMI 57.9
--- NOTE | 2020-04-13 04:57 | PC.NURSE ---
Pt A&OX4 wheezes noted t/o lungs. pt wore BIPAP until 3am this morning. 02 sats 92-95 %. pt sat up in chair this am for a hour. f/c draining yellow urine
[2020-04-13 06:14] LABS: POC Glucose,Bedside 432 (70-110)
[2020-04-13 07:17] LABS: Basophils % 0.1 % (0.1-2.0); Hemoglobin 14.7 g/dL (14.1-18.0); Lymphocytes # 0.4 K/mm3 (0.7-4.5); Lymphocytes % 5.2 % (10-50); Mean Corpuscular HGB Conc 29.5 g/dL (31.8-35.4); Mean Corpuscular Hemoglobin 27.5 pg (27.0-31.2); Mean Corpuscular Volume 93.3 fl (80-94); Monocytes # 0.3 K/mm3 (0.1-1.0); Monocytes % 4.8 % (1.7-9.3); Neutrophils # 6.4 K/mm3 (1.8-7.8); Neutrophils % 89.9 % (37.0-80.0); Platelet Count 227 K/mm3 (142-424); Red Blood Count 5.36 M/mm3 (4.60-6.20); Red Cell Distribution Width 15.4 % (11.5-17.5); White Blood Count 7.2 K/mm3 (4.8-10.8)
[2020-04-13 07:21] LABS: Chloride 91 mmol/L (98-107); MANUAL DIFFERENTIAL MANUAL DIFFERENTIAL (MANUAL DIFF); Potassium 5.3 mmoL/L (3.5-5.1); Sodium 139 mmol/L (136-145)
[2020-04-13 07:24] LABS: Blood Urea Nitrogen 62 mg/dl (9-20); Creatinine Clearance Estimated 40 mL/min (50-200); Estimated Glomerular Filt Rate 43 ml/min (>60); GFR (African American) 52 ML/MIN (>60)
[2020-04-13 07:35] LABS: Anion Gap 15.3 mEq/L (5-15); Carbon Dioxide 38 mmol/L (22.0-30.0)
[2020-04-13 07:36] LABS: Glucose 409 mg/dl (74-100)
--- NOTE | 2020-04-13 07:41 | HMH.ACPN2 ---
Internal Medicine - PN: Subj *Date: 04/13/20 *Time: 07:41 Interval history: Patient reports feeling better. He has been on BiPAP now for the majority of his stay and while he had improvement in oxygenation there has not been any improvement in patient's hypercapnia. Respiratory therapy spoke with sleep medicine about other options and the trilogy device was recommended. Exam Vital signs and Labs for Last 24 Hours: Temp Pulse Resp BP Pulse Ox 98.4 F 89 19 155/79 H 96 04/13/20 04:00 04/13/20 06:17 04/13/20 04:00 04/13/20 04:00 04/13/20 06:17 Laboratory Results - last 24 hr 04/12/20 07:48: WBC 9.6 D, RBC 5.08, Hgb 14.8, Hct 46.7, MCV 92.1, MCH 29.1, MCHC 31.6 L, RDW 15.5, Plt Count 241, MPV 9.7, Neut % (Auto) 87.8 H, Lymph % (Auto) 7.4 L, [place] % (Auto) 4.7, Eos % (Auto) 0.1, Baso % (Auto) 0.1, Neut # (Auto) 8.4 H, Lymph # (Auto) 0.7, [place] # (Auto) 0.5, Eos # (Auto) 0.0, Baso # (Auto) 0.0, Total Counted 100, Neutrophils % (Manual) 87 H, Band Neutrophils % 3.0, Lymphocytes % (Manual) 7 L, Monocytes % (Manual) 3, Platelet Estimate Normal, RBC Morphology Normal 04/12/20 07:48: Sodium 139, Potassium 5.0, Chloride 94 L, Carbon Dioxide 39 H, Anion Gap 11.0, BUN 55 H D, Creatinine 1.70 H, Estimated Creat Clear 38, Estimated GFR 40 L, Est GFR ( Amer) 49 L, Glucose 315 H, Calcium 9.1 04/12/20 10:23: POC Glucose 343 H* 04/12/20 15:30: POC Glucose 352 H* 04/12/20 20:38: POC Glucose 448 H* 04/13/20 05:15: POC Glucose 432 H* 04/13/20 06:08: WBC 7.2, RBC 5.36, Hgb 14.7, Hct 50.0, MCV 93.3, MCH 27.5, MCHC 29.5 L, RDW 15.4, Plt Count 227, MPV 9.0, Neut % (Auto) 89.9 H, Lymph % (Auto) 5.2 L, [place] % (Auto) 4.8, Eos % (Auto) 0.0 L, Baso % (Auto) 0.1, Neut # (Auto) 6.4, Lymph # (Auto) 0.4 L, [place] # (Auto) 0.3, Eos # (Auto) 0.0, Baso # (Auto) 0.0 04/13/20 06:08: Sodium 139, Potassium 5.3 H, Chloride 91 L, Carbon Dioxide 38 H, Anion Gap 15.3 H, BUN 62 H, Creatinine 1.60 H, Estimated Creat Clear 40, Estimated GFR 43 L, Est GFR ( Amer) 52 L, Glucose 409 H* D, Calcium 9.0 I & O for Last 24 hours: Intake & Output 04/10/20 04/11/20 04/12/20 04/13/20 11:59 11:59 11:59 11:59 Intake Total 1280 / 1280 1210 / 1330 4020 / 4020 Output Total 1979 / 1979 2575 / 3275 4320 / 4320 Balance -700 / -700 -1365 / -1945 -300 / -300 Weight 374 lb 1 oz 372 lb 2.244 oz 369 lb 4.388 oz Microbiology Reports for the Last 24 Hours: Microbiology 04/10/20 19:45 Blood Blood Culture - Preliminary NO GROWTH AFTER 48 HOURS 04/10/20 19:45 Blood Blood Culture - Preliminary NO GROWTH AFTER 48 HOURS Narrative: Patient is laying supine in bed. He has a pickwickian appearance. Lungs are distant with fair aeration and no wheezing this morning. Heart has a regular rate and rhythm. Abdomen is obese. Lower extremities have no edema. Morgan catheter is in place Assessment and Plan (1) Acute respiratory failure with hypoxia and hypercapnia Status: Acute Category: Medical Code(s): J96.01 - Acute respiratory failure with hypoxia; J96.02 - Acute respiratory failure with hypercapnia (2) Acute and chronic respiratory failure Status: Acute Category: Medical Code(s): J96.20 - Acute and chronic respiratory failure, unspecified whether with hypoxia or hypercapnia (3) Morbid obesity with BMI of 50.0-59.9, adult Status: Acute Category: Medical Code(s): E66.01 - Morbid (severe) obesity due to excess calories; Z68.43 - Body mass index [BMI] 50.0-59.9, adult (4) Congestive heart failure Status: Suspected Qualifiers: Heart failure type: unspecified Heart failure chronicity: unspecified Qualified Code(s): I50.9 - Heart failure, unspecified Category: Medical Code(s): I50.9 - Heart failure, unspecified (5) Diabetes mellitus Status: Acute Qualifiers: Diabetes mellitus type: type 2 Diabetes mellitus longterm insulin use: unspecified bed bug exterminator insulin use
--- NOTE | 2020-04-13 08:09 | PC.NURSE ---
DR. MCDANIEL NOTIFIED OF PT CRITICAL GLUCOSE AT THIS TIME.
[2020-04-13 08:45] LABS: Lymphocytes % 9 % (10-50); Monocytes % 3 % (2-9); Neutrophils % 88 % (42-76); Platelet Estimate Normal; RBC Morphology Normal; Total Cells Counted 100
--- NOTE | 2020-04-13 09:05 | HMH.PNCARD ---
Subjective Date: 04/13/20 Time: 09:00 Principal diagnosis: diastolic chf Interval history: This is a 69-year-old white gentleman who was admitted to the hospital with shortness of breath. His CPAP/BiPAP at home had stopped working and he was using his sister's machine which was not helping very much. He got progressively more short of breath and presented to the emergency department. The patient has been on a BiPAP here while at the hospital. He still remains somewhat hypercapnic. He has been switched over to trilogy today. He also got some IV diuresis with Lasix, and he has switched over to oral Lasix at this time. This morning he denies any chest pain or pressure. He states his shortness of breath has significantly improved and he is feeling much better. He denies any lower extremity edema. He denies any fever, chills, nausea, vomiting or diarrhea. Exam Vital signs and Labs for Last 24 Hours: Temp Pulse Resp BP Pulse Ox 98.2 F 89 20 118/70 90 L 04/13/20 08:23 04/13/20 08:23 04/13/20 08:23 04/13/20 08:23 04/13/20 08:23 Laboratory Results - last 24 hr 04/12/20 10:23: POC Glucose 343 H* 04/12/20 15:30: POC Glucose 352 H* 04/12/20 20:38: POC Glucose 448 H* 04/13/20 05:15: POC Glucose 432 H* 04/13/20 06:08: WBC 7.2, RBC 5.36, Hgb 14.7, Hct 50.0, MCV 93.3, MCH 27.5, MCHC 29.5 L, RDW 15.4, Plt Count 227, MPV 9.0, Neut % (Auto) 89.9 H, Lymph % (Auto) 5.2 L, [place] % (Auto) 4.8, Eos % (Auto) 0.0 L, Baso % (Auto) 0.1, Neut # (Auto) 6.4, Lymph # (Auto) 0.4 L, [place] # (Auto) 0.3, Eos # (Auto) 0.0, Baso # (Auto) 0.0, Total Counted 100, Neutrophils % (Manual) 88 H, Lymphocytes % (Manual) 9 L, Monocytes % (Manual) 3, Platelet Estimate Normal, RBC Morphology Normal 04/13/20 06:08: Sodium 139, Potassium 5.3 H, Chloride 91 L, Carbon Dioxide 38 H, Anion Gap 15.3 H, BUN 62 H, Creatinine 1.60 H, Estimated Creat Clear 40, Estimated GFR 43 L, Est GFR ( Amer) 52 L, Glucose 409 H* D, Calcium 9.0 I & O for Last 24 hours: Intake & Output 04/10/20 04/11/20 04/12/20 04/13/20 23:59 23:59 23:59 23:59 Intake Total 1000 / 1000 1000 / 1120 1690 / 2910 2820 / 2820 Output Total 1300 / 1300 2080 / 2805 2775 / 3875 3120 / 3120 Balance -300 / -300 -1080 / -1685 -1085 / -965 -300 / -300 Weight 374 lb 1 oz 374 lb 12.573 oz 372 lb 2.244 oz 369 lb 4.388 oz Microbiology Reports for the Last 24 Hours: Microbiology 04/10/20 19:45 Blood Blood Culture - Preliminary NO GROWTH AFTER 48 HOURS 04/10/20 19:45 Blood Blood Culture - Preliminary NO GROWTH AFTER 48 HOURS - Constitutional no acute distress, morbidly obese - *Routine HEENT Exam Head: Present: normocephalic, atraumatic Eye: Present: EOMI, PERRL ENT: Present: mucous membranes moist - *Routine Neck Exam Present: supple, full ROM. Absent: JVD, carotid bruit, lymphadenopathy - *Routine Respiratory Exam Present: CTA bilaterally - *Routine Cardiovascular Exam Present: RRR, Normal S1, Normal S2. Absent: murmur - *Routine Abdominal Exam Present: soft, normoactive bowel sounds. Absent: tenderness - *Routine Extremities Exam Present: full ROM, pulses intact, normal capillary refill. Absent: cyanosis, clubbing, edema - *Routine Skin Exam Present: intact, warm. Absent: erythema, rash - *Routine Neurological Exam Present: alert, oriented X3, CN II-XII intact. Absent: sensory deficit, motor deficit Progress Note: A&P (1) Acute respiratory failure with hypoxia and hypercapnia Status: Acute (2) Acute and chronic respiratory failure Status: Acute (3) Morbid obesity with BMI of 50.0-59.9, adult Status: Acute (4) Congestive heart failure Status: Suspected (5) Diabetes mellitus Status: Acute (6) SMITA (obstructive sleep apnea) Status: Acute (7) Rheumatoid arthritis Status: Acute (8) HTN (hypertension) Status: Acute (9) HLD (hyperlipidemia) Status: Acute (10) Obesit
--- NOTE | 2020-04-13 10:57 | PC.NURSE ---
PT 87% ON RA AND WILL LIKELY REQUIRE OXYGEN SUPPORT AT HOME.
--- NOTE | 2020-04-13 12:15 | HMH.PTEV ---
Physical Therapy Evaluation Rehab PT IP Evaluation Start: 04/13/20 07:46 Freq: ONCE Status: Active Protocol: Document 04/13/20 12:11 ELVER (Rec: 04/13/20 12:15 CAROLEGERARDO [id number]) Subjective/History History History This is the initial IP PT evaluation for Akil Su. Pt is a 69 y/o male admitted to [facility] for resp. failure. Pt has long hx of significant breathing issues and supp O2 use. Pt lives w/ son in single story home and uses w/c , electric w/c and rolling walker to move about. Pt uses electric scooter most of the time. Subjective Subjective Pt has no complaints at this time Rehab PT IP Eval Objective Appearance Patient Behavior Cooperative Patient Orientation Person,Place,Time Difficulty following instructions none Speech Pattern Appropriate Ambulation Patient Able to Ambulate Yes Ambulation Observation IP General Gait Pattern Observation Shuffling Step Ambulation Distance (feet) 5 Ambulation Assistive Device None Ambulation Ability Supervision/Stand by,Contact Guard/Hand Hold Balance Ability to Arise Able, uses arms to help Sitting Balance Steady, safe Standing Balance Steady, wide stance Dynamic Sitting Balance Ability Good Dynamic Standing Balance Ability Fair Transfers Bed Transfer Ability Independent Chair Transfer Ability Independent Sit to Stand Bed Transfer Ability Independent Sit to Stand Chair Transfer Ability Independent Rehab PT IP prob,goals,plan Problems Date of Evaluation: 04/13/20 Rehab Potential Rehab Potential Innapropriate for Skilled Therapy Discharge Plan PT Discharge Plan Pt at baseline level of function - pt safe to return home once medically stable - no need for skilled IPPT at this time G -code Required Yes Eval Complexity Eval Charge Codes 68904 - Low Complexity G Codes PT Current Status Mobility PT Current Status Modifier CJ-At least 20% but less than 40% impaired, limited or restricted PT Goal Status Mobility PT Goal Status Modifer CJ-At least 20% but le
[2020-04-13 12:25] LABS: POC Glucose,Bedside 340 (70-110)
--- NOTE | 2020-04-13 15:20 | DIET.NUTRFU ---
Pt with critical hyperglycemia rt steroids- ~375. 4.6# weight loss. Pt states he has been adhering to diabetic diet. Has been educated on diet for DM/CHF/obesity. Continuing to monitor.
[2020-04-13 16:30] LABS: POC Glucose,Bedside 419 (70-110)
--- NOTE | 2020-04-13 18:58 | PC.NURSE ---
PT IS AO*4, ABLE TO MAKE NEEDS KNOWN TO STAFF, ALEJANDRE WAS REMOVED TODAY, PT AMBULATED*2 WITH ASSISTANCE*1 TO BATHROOM FOR ELIMINATION, VSS T/O SHIFT, 4LNC FOR O2 SUPPORT, PT IS TO WEAR TRILOGY OVERNIGHT SO THAT RT CAN ADJUST SETTING FOR WHEN PT IS DISCHARGED,
[2020-04-13 22:04] LABS: POC Glucose,Bedside 389 (70-110)
[2020-04-14] VITALS (10 sets, daily range): BP systolic 117–150; BP diastolic 67–92; PULSE 64–90; RESP 19–25; TEMP 36.6–36.8; O2SAT 90–98; BMI 58.4
--- NOTE | 2020-04-14 04:31 | PC.NURSE ---
trilogy 4L initial start Sat's dropped 80% at 2240 increased O2 to 6L at 0110 Sat's dropped to 85% increased O2 to 8L to level pt out
[2020-04-14 05:41] LABS: POC Glucose,Bedside 364 (70-110)
--- NOTE | 2020-04-14 06:27 | PC.NURSE ---
Pt A&OX4 scattered wheezes noted. trilogy settings changed multiple time t/o shift per RT. pt has multiple complete bed changes t/o due to urine incontinent episodes. pt has setup in wheelchair at intervals t/o shift
[2020-04-14 07:02] LABS: Basophils % 0.1 % (0.1-2.0); Hematocrit 51.1 % (42.0-52.0); Hemoglobin 15.6 g/dL (14.1-18.0); Lymphocytes # 0.3 K/mm3 (0.7-4.5); Lymphocytes % 4.7 % (10-50); Mean Corpuscular HGB Conc 30.6 g/dL (31.8-35.4); Mean Corpuscular Volume 91.4 fl (80-94); Mean Platelet Volume 8.9 fl (7.4-10.4); Monocytes # 0.2 K/mm3 (0.1-1.0); Monocytes % 3.2 % (1.7-9.3); Neutrophils # 6.4 K/mm3 (1.8-7.8); Neutrophils % 91.9 % (37.0-80.0); Platelet Count 222 K/mm3 (142-424); Red Cell Distribution Width 15.2 % (11.5-17.5)
[2020-04-14 07:09] LABS: Chloride 89 mmol/L (98-107); Potassium 5.9 mmoL/L (3.5-5.1); Sodium 135 mmol/L (136-145)
[2020-04-14 07:11] LABS: MANUAL DIFFERENTIAL MANUAL DIFFERENTIAL (MANUAL DIFF)
[2020-04-14 07:12] LABS: Blood Urea Nitrogen 67 mg/dl (9-20); Calcium 8.9 mg/dl (8.4-10.2); Creatinine Clearance Estimated 46 mL/min (50-200); Estimated Glomerular Filt Rate 51 ml/min (>60); GFR (African American) 61 ML/MIN (>60); Glucose 384 mg/dl (74-100)
[2020-04-14 07:19] LABS: Anion Gap 11.9 mEq/L (5-15)
[2020-04-14 07:21] LABS: Carbon Dioxide 40 mmol/L (22.0-30.0)
--- NOTE | 2020-04-14 07:36 | HMH.ACPN2 ---
Internal Medicine - PN: Subj *Date: 04/14/20 *Time: 07:36 Interval history: Patient has no complaints this morning. He was transitioned to the trilogy ventilation device yesterday and reports that he did well with it overnight. However he required 8 L of supplemental oxygen while using the device and laying supine in bed to maintain O2 sats at 90% or slightly higher. Patient reports he does sleep in a bed at home. Currently he is sitting up in a wheelchair ready for breakfast and oxygenating well on 3 L of oxygen Exam Vital signs and Labs for Last 24 Hours: Temp Pulse Resp BP Pulse Ox 98.0 F 64 25 H 117/80 94 L 04/14/20 04:00 04/14/20 06:30 04/14/20 04:00 04/14/20 04:00 04/14/20 06:30 Laboratory Results - last 24 hr 04/13/20 06:08: Total Counted 100, Neutrophils % (Manual) 88 H, Lymphocytes % (Manual) 9 L, Monocytes % (Manual) 3, Platelet Estimate Normal, RBC Morphology Normal 04/13/20 06:08: Sodium 139, Potassium 5.3 H, Chloride 91 L, Carbon Dioxide 38 H, Anion Gap 15.3 H, BUN 62 H, Creatinine 1.60 H, Estimated Creat Clear 40, Estimated GFR 43 L, Est GFR ( Amer) 52 L, Glucose 409 H* D, Calcium 9.0 04/13/20 12:09: POC Glucose 340 H* 04/13/20 16:02: POC Glucose 419 H* 04/13/20 21:22: POC Glucose 389 H* 04/14/20 05:29: POC Glucose 364 H* 04/14/20 06:15: WBC 7.0, RBC 5.60, Hgb 15.6, Hct 51.1, MCV 91.4, MCH 28.0, MCHC 30.6 L, RDW 15.2, Plt Count 222, MPV 8.9, Neut % (Auto) 91.9 H, Lymph % (Auto) 4.7 L, Adams % (Auto) 3.2, Eos % (Auto) 0.0 L, Baso % (Auto) 0.1, Neut # (Auto) 6.4, Lymph # (Auto) 0.3 L, Adams # (Auto) 0.2, Eos # (Auto) 0.0, Baso # (Auto) 0.0 04/14/20 06:15: Sodium 135 L, Potassium 5.9 H, Chloride 89 L, Carbon Dioxide 40 H, Anion Gap 11.9, BUN 67 H, Creatinine 1.40 H, Estimated Creat Clear 46, Estimated GFR 51 L, Est GFR ( Amer) 61, Glucose 384 H, Calcium 8.9 I & O for Last 24 hours: Intake & Output 04/11/20 04/12/20 04/13/20 04/14/20 11:59 11:59 11:59 11:59 Intake Total 1280 / 1280 1210 / 1330 4020 / 4020 920 / 920 Output Total 1979 / 1979 2575 / 3275 4720 / 4720 350 / 350 Balance -700 / -700 -1365 / -1945 -700 / -700 570 / 570 Weight 374 lb 1 oz 372 lb 2.244 oz 369 lb 4.388 oz 372 lb 9.299 oz Narrative: Patient is in no distress. He does have some mild conversational dyspnea. Lungs are distant but overall clear without rales or wheezes. Heart has a regular rate and rhythm. Abdomen is obese and soft. Lower extremities have no edema Assessment and Plan (1) Acute respiratory failure with hypoxia and hypercapnia Status: Acute Category: Medical Code(s): J96.01 - Acute respiratory failure with hypoxia; J96.02 - Acute respiratory failure with hypercapnia (2) Acute and chronic respiratory failure Status: Acute Category: Medical Code(s): J96.20 - Acute and chronic respiratory failure, unspecified whether with hypoxia or hypercapnia (3) Morbid obesity with BMI of 50.0-59.9, adult Status: Acute Category: Medical Code(s): E66.01 - Morbid (severe) obesity due to excess calories; Z68.43 - Body mass index [BMI] 50.0-59.9, adult (4) Congestive heart failure Status: Suspected Qualifiers: Heart failure type: unspecified Heart failure chronicity: unspecified Qualified Code(s): I50.9 - Heart failure, unspecified Category: Medical Code(s): I50.9 - Heart failure, unspecified (5) Diabetes mellitus Status: Acute Qualifiers: Diabetes mellitus type: type 2 Diabetes mellitus half-way insulin use: unspecified termite treater insulin use status Diabetes mellitus complication status: with other specified complication Qualified Code(s): E11.69 - Type 2 diabetes mellitus with other specified complication Category: Medical Code(s): E11.9 - Type 2 diabetes mellitus without complications (6) SMITA (obstructive sleep apnea) Status: Acute Category: Medical Code(s): G47.33 - Obstructive sleep apnea (adult) (pediatric) (7) Rheumatoid arthritis Status: Acu
--- NOTE | 2020-04-14 09:06 | HMH.PNCARD ---
Subjective Date: 04/14/20 Time: 09:00 Principal diagnosis: diastolic chf Interval history: This is a 69-year-old white gentleman who is admitted to the hospital with hypercapnia. His CPAP/BiPAP malfunctioned at home and he started using his sister CPAP which was not working for him. Throughout his hospitalization he has been on a BiPAP and the patient still remains hypercapnic despite being on the BiPAP. He was switched over to a trilogy machine last night. He did have to use 8 L of supplemental oxygen on the trilogy machine during the night last night. They are going to try to adjust settings more today where he is not have any you so much supplemental oxygen. He is on a nasal cannula this morning and lying flat in the bed and maintaining his oxygen saturation above 90%. He states his shortness of breath is much better now. He denies any chest pain or pressure. He denies any edema. He denies any fever, chills, nausea, vomiting or diarrhea. Exam Vital signs and Labs for Last 24 Hours: Temp Pulse Resp BP Pulse Ox 98.3 F 74 20 118/67 98 04/14/20 08:00 04/14/20 08:00 04/14/20 08:00 04/14/20 08:00 04/14/20 08:00 Laboratory Results - last 24 hr 04/13/20 12:09: POC Glucose 340 H* 04/13/20 16:02: POC Glucose 419 H* 04/13/20 21:22: POC Glucose 389 H* 04/14/20 05:29: POC Glucose 364 H* 04/14/20 06:15: WBC 7.0, RBC 5.60, Hgb 15.6, Hct 51.1, MCV 91.4, MCH 28.0, MCHC 30.6 L, RDW 15.2, Plt Count 222, MPV 8.9, Neut % (Auto) 91.9 H, Lymph % (Auto) 4.7 L, Gila % (Auto) 3.2, Eos % (Auto) 0.0 L, Baso % (Auto) 0.1, Neut # (Auto) 6.4, Lymph # (Auto) 0.3 L, Gila # (Auto) 0.2, Eos # (Auto) 0.0, Baso # (Auto) 0.0 04/14/20 06:15: Sodium 135 L, Potassium 5.9 H, Chloride 89 L, Carbon Dioxide 40 H, Anion Gap 11.9, BUN 67 H, Creatinine 1.40 H, Estimated Creat Clear 46, Estimated GFR 51 L, Est GFR ( Amer) 61, Glucose 384 H, Calcium 8.9 I & O for Last 24 hours: Intake & Output 04/11/20 04/12/20 04/13/20 04/14/20 23:59 23:59 23:59 23:59 Intake Total 1000 / 1120 1690 / 2910 3740 / 3740 1200 / 1200 Output Total 2080 / 2805 2775 / 3875 3470 / 3470 Balance -1080 / -1685 -1085 / -965 270 / 270 1200 / 1200 Weight 374 lb 12.573 oz 372 lb 2.244 oz 369 lb 4.388 oz 372 lb 9.299 oz Narrative: Telemetry strip is sinus rhythm with a rate of 80. - Constitutional no acute distress, morbidly obese - *Routine HEENT Exam Head: Present: normocephalic, atraumatic Eye: Present: EOMI, PERRL ENT: Present: mucous membranes moist - *Routine Neck Exam Present: supple, full ROM, normal carotid upstroke. Absent: JVD, carotid bruit, lymphadenopathy - *Routine Respiratory Exam Present: CTA bilaterally - *Routine Cardiovascular Exam Present: RRR, Normal S1, Normal S2. Absent: murmur - *Routine Abdominal Exam Present: soft, normoactive bowel sounds. Absent: tenderness, distended - *Routine Extremities Exam Present: full ROM, pulses intact, normal capillary refill. Absent: cyanosis, clubbing, edema - *Routine Skin Exam Present: intact, warm. Absent: erythema, rash - *Routine Neurological Exam Present: alert, oriented X3, CN II-XII intact. Absent: sensory deficit, motor deficit Progress Note: A&P (1) Acute respiratory failure with hypoxia and hypercapnia Status: Acute (2) Acute and chronic respiratory failure Status: Acute (3) Morbid obesity with BMI of 50.0-59.9, adult Status: Acute (4) Congestive heart failure Status: Suspected (5) Diabetes mellitus Status: Acute (6) SMITA (obstructive sleep apnea) Status: Acute (7) Rheumatoid arthritis Status: Acute (8) HTN (hypertension) Status: Acute (9) HLD (hyperlipidemia) Status: Acute (10) Obesity hypoventilation syndrome Status: Acute (11) COPD (chronic obstructive pulmonary disease) Status: Acute (12) Hyperkalemia Status: Acute Assessment and Plan for All Diagnoses:: Plan: 1. The patient was admitted to the hospital wit
[2020-04-14 11:13] LABS: Lymphocytes % 7 % (10-50); Monocytes % 1 % (2-9); Neutrophils % 90 % (42-76); Poikilocytosis 2+; Stomatocytes 2+; Total Cells Counted 100
[2020-04-14 11:14] LABS: Platelet Estimate Normal
[2020-04-14 12:06] LABS: POC Glucose,Bedside 401 (70-110)
[2020-04-14 15:39] LABS: POC Glucose,Bedside 361 (70-110)
--- NOTE | 2020-04-14 18:54 | PC.NURSE ---
Pt is alert and oriented x 4 and able to make needs known. RR even and continues with use of 02 @ 3 L and trilogy. Pt recently lied down and has trilogy on. VSS. NSR on tele. FS achs and ssi for coverage. CB in reach and daughter has been to visit this afternoon. Pt remains safe and has had multiple unmeasured voids this shift with episodes of incontinence. Have explained importance of measuring output and pt has been incont and unable to measure urine as needed.
[2020-04-14 22:42] LABS: POC Glucose,Bedside 388 (70-110)
[2020-04-15] VITALS: BP 125/70; PULSE 70; PULSE 71; RESP 20; TEMP 36.7; O2SAT 94
[2020-04-15 04:00] VITALS: BP 110/66; PULSE 60; PULSE 70; RESP 19; TEMP 36.8; O2SAT 94
--- NOTE | 2020-04-15 04:29 | PC.NURSE ---
Pt is alert and oriented x4. Pt rested well with eyes closed this shift. No acute changes noted from previous shift. Pt tolerated trilogy well with no c/o SOA. Bilateral lungs noted diminished t/o upon auscultation. RR noted even and unlabored. No edema noted. assembly line inspector noted NSR. Refused teds. Reports of multiple incontinent episodes from [facility]. Pt states he attempts to get OOB but does not make it out quick enough before becoming incontinent. VSS. Remains safe. Call light within reach. Will continue to monitor.
[2020-04-15 05:01] VITALS: BMI 57.9
[2020-04-15 05:49] LABS: POC Glucose,Bedside 250 (70-110)
[2020-04-15 06:35] VITALS: PULSE 70; O2SAT 88
[2020-04-15 07:01] LABS: Chloride 86 mmol/L (98-107); Potassium 4.5 mmoL/L (3.5-5.1); Sodium 135 mmol/L (136-145)
[2020-04-15 07:04] LABS: Blood Urea Nitrogen 69 mg/dl (9-20); Calcium 8.9 mg/dl (8.4-10.2); Creatinine Clearance Estimated 43 mL/min (50-200); Estimated Glomerular Filt Rate 47 ml/min (>60); GFR (African American) 56 ML/MIN (>60); Glucose 272 mg/dl (74-100)
--- NOTE | 2020-04-15 07:21 | HMH.DCSUM ---
General - General Admission date:: 04/10/20 Discharge date: 04/15/20 HPI HPI: 69-year-old male with diabetes and rheumatoid arthritis presented to the emergency department with worsening shortness of breath after being seen in the urgent treatment clinic earlier in the day. Patient reported sensation of wheezing and dyspnea. Patient believes this all began after his current CPAP/BiPAP, which is rather old, malfunctioned and was no longer effective. He tried to make up for this by using his sisters CPAP but this did not seem to help him as much as his personal device. Patient reports his CPAP malfunction a few days ago . He presented to the [facility] and was treated but shortly thereafter returned to the emergency department with worsening shortness of breath. He denies symptoms of infection. He denies chest pain. Work-up in the ER revealed acute on chronic respiratory failure with mild acidosis and hypercapnia consistent with acute on chronic hypercapnia. Patient was also felt to have some element of congestive heart failure. Patient was admitted and placed on BiPAP overnight. Nursing staff reports patient had episodes of confusion initially but these improved as the night wore on and he has become oriented to person and place. Patient does note improvement this morning. Hospital Course Hospital Course: Patient was admitted and placed on BiPAP for his acute on chronic respiratory failure with both hypoxemia and hypercapnia. While BiPAP did improve the patient's oxygenation it had very little impact on the patient's hypercapnia with Pa CO2 remaining in the 70s. Because of the ineffectiveness of the BiPAP and improving patient's hypercapnia patient was transitioned to a trilogy ventilation assist device. In addition to the use of the trilogy the patient was placed on steroids and duo nebs while hospitalized. Patient noted improvement in mentation, energy, quality of sleep and rest with use of the trilogy device. Patient did have continued oxygen requirement even with use of the device and was started on supplemental oxygen on admission and continued on supplemental oxygen during hospitalization. Patient was requiring 3 L of oxygen per minute at discharge. He will need home oxygen concentrator and portable form of oxygen. On the day of discharge patient's lung exam had distant breath sounds only with no rales, rhonchi, wheezes. Patient was back to his baseline mental status as well as his level of activity. Patient was discharged home. We will make a referral to Dr. Barahona at discharge. Patient had hyperkalemia that was likely triggered by his hyperglycemia. Hyperglycemia from his diabetes was made worse with steroids. Patient's hyperglycemia was treated with sliding scale insulin coverage. Hyperkalemia was treated with IV Lasix. IV Lasix was also used to treat presumed congestive heart failure although patient's body habitus made it significantly difficult to accurately assess patient's heart with echocardiogram. Objective Vital signs: Temp Pulse Resp BP Pulse Ox 98.2 F 70 19 110/66 88 L 04/15/20 04:00 04/15/20 06:35 04/15/20 04:00 04/15/20 04:00 04/15/20 06:35 no acute distress, morbidly obese - *Routine Respiratory Exam Present: CTA bilaterally, distant breath sounds - *Routine Cardiovascular Exam Present: RRR, Normal S1, Normal S2 - *Routine Abdominal Exam Present: soft, normoactive bowel sounds, obese - *Routine Extremities Exam Absent: edema Results Labs on day of discharge: Labs from last 24 hours 04/15/20 04/15/20 04/14/20 06:15 05:04 22:01 Total Counted Neutrophils % (Manual) Lymphocytes % (Manual) Atypical Lymphs % Monocytes % (Manual) Platelet Estimate Poikilocytosis Stomatocytes Sodium 135 L Potassium 4.5 D Chloride 86 L Carbon Dioxide Anion Gap BUN 69 H Creatinine 1.50 H Estimated Creat Clear 43 Estimated GFR 47 L
[2020-04-15 07:25] LABS: Anion Gap 9.5 mEq/L (5-15); Carbon Dioxide 44 mmol/L (22.0-30.0)
[2020-04-15 08:00] VITALS: BP 121/73; PULSE 76; RESP 20; TEMP 36.5; O2SAT 95
--- NOTE | 2020-04-15 08:48 | SW/DCPLANNER ---
Addendum entered by Mirian Larsen 04/15/20 10:16: Doris with [employer] has stated that portable/home O2 will be delivered to patient. Original Note: Patient information and order for home O2 has been faxed to [facility]. I will follow up with [facility] once patient information is reviewed. This patient will discharge home later today.
[2020-04-15 08:51] VITALS: O2SAT 85
== END 2020-04-15 11:50 | disposition home or self-care (01) ==
LOC: ER 22:50 → 2ND 23:32
PROVIDERS: Emergency Medicine; Admitting Provider Family Medicine; Emergency Provider Emergency Medicine; PCP Nurse Practitioner Family; Visit Provider Family Medicine
DX: J96.01 Acute respiratory failure with hypoxia (principal); J96.22 Acute and chronic respiratory failure with hypercapnia; E66.2 Morbid (severe) obesity with alveolar hypoventilation; Z68.43 Body mass index [BMI] 50.0-59.9, adult; I11.0 Hypertensive heart disease with heart failure; I50.9 Heart failure, unspecified; M06.9 Rheumatoid arthritis, unspecified; G47.33 Obstructive sleep apnea (adult) (pediatric); E78.5 Hyperlipidemia, unspecified; E11.9 Type 2 diabetes mellitus without complications; Z79.4 Long term (current) use of insulin; Z79.899 Other long term (current) drug therapy; Z88.2 Allergy status to sulfonamides
CPT/HCPCS: 36415; 71045; 71046; 80048; 80061; 80076; 82803; 82962; 83605; 83735; 83880; 84145; 84436; 84443; 84484; 85007; 85025; 85378; 86328; 87040; 87581; 87633; 87798; 93005; 93306; 93308; 94640; 94660; 96365; 96372; 96375; 97161; 99202; 99285; G0378; J1030; U0003

== ENCOUNTER 2020-05-24 08:42 | Outpatient (RCR) | payer MEDICARE, SELFPAY | END 2020-05-24 08:45 | disposition home or self-care (01) | LOC: PT 08:42 | PROVIDERS: PCP Nurse Practitioner Family; Visit Provider Nurse Practitioner Family | DX: M06.9 Rheumatoid arthritis, unspecified (principal); I50.9 Heart failure, unspecified; I10 Essential (primary) hypertension; N28.9 Disorder of kidney and ureter, unspecified | CPT/HCPCS: 97542 ==

== ENCOUNTER 2020-06-17 09:44 | Emergency (ER) | payer MEDICARE, SELFPAY ==
[2020-06-17 09:59] VITALS: BP 120/80; PULSE 75; RESP 16; TEMP 36.4; O2SAT 92; BMI 59.7
--- NOTE | 2020-06-17 10:02 | XR_ITS ---
PROCEDURE: XR KNEE RT 3V CLINICAL INDICATION: FALL Pain COMPARISON: CR XR KNEE LT 3V from 06/17/2020 FINDINGS: No fracture or dislocation. No lytic or blastic change. There is normal mineralization. There are moderate to severe osteoarthritic changes of the medial compartment with moderate osteoarthritis of the lateral compartment and patellofemoral joint. Along the anterior aspect of the distal femur there is a cortical step-off. This may only be related to a spur. There is a small suprapatellar effusion. IMPRESSION: Moderate to severe osteoarthritic changes. No definite acute fracture. Cortical step-off of the anterior distal femur possibly related to a spur. If pain persists, CT may confirm. Dictated by: Rafat Kaur MD 06/17/2020 11:11 Rafat Kaur MD in [place] 06/17/2020 11:11
--- NOTE | 2020-06-17 10:02 | XR_ITS ---
PROCEDURE: XR FOREARM RT 2V CLINICAL INDICATION: FALL Posttraumatic pain COMPARISON: No exams were available for comparison FINDINGS: No fracture or dislocation. No lytic or blastic change. There is normal mineralization. Calcification is present in the distal aspect of the arm posteriorly within the soft tissues. Osteoarthritic changes are present at the elbow and wrist. Faint calcification noted about the anterior and posterior aspect of the wrist. Wrist films may provide further evaluation if clinically warranted. There is minimal cortical lobularity along the midshaft of the ulna posteriorly and could be due to direct trauma or could be developmental. Mild soft tissue swelling is present along the dorsal and proximal aspect of the ulna. Other findings:None. IMPRESSION: No definite acute fracture. Questionable small cortical defects of the dorsal and mid aspect of the ulna Degenerative changes. See above for detail Dictated by: Rafat Kaur MD 06/17/2020 11:16 Rafat Kaur MD in [place] 06/17/2020 11:16
--- NOTE | 2020-06-17 10:02 | XR_ITS ---
PROCEDURE: XR KNEE LT 3V CLINICAL INDICATION: FALL Posttraumatic pain COMPARISON: CR XR KNEE RT 3V from 06/17/2020 FINDINGS: No fracture or dislocation. No lytic or blastic change. There is normal mineralization. Mild tricompartmental osteoarthritic changes. Other findings:None. IMPRESSION: No acute findings. Dictated by: Rafat Kaur MD 06/17/2020 11:07 Rfaat Kaur MD in [place] 06/17/2020 11:07
--- NOTE | 2020-06-17 10:04 | HMH.EDUTC ---
[facility] [place] Impression: Bilateral knee pain Qualifiers: Chronicity: unspecified Qualified Code(s): M25.561 - Pain in right knee Forearm sprain Qualifiers: Encounter type: initial encounter Laterality: right Qualified Code(s): S63.501A - Unspecified sprain of right wrist, initial encounter Disposition: Home, Self-Care Condition on Discharge: Good Instructions: Contusion, Knee Sprain, DI for Knee Sprain, DI for Contusion, DI for Chronic Pain -- Adult, How To Perform RICE (Rest, Ice, Compress, Elevate), How to Apply an Kade Wrap Additional Instructions: *weight bearing as tolerated *RICE, Rest the extremity, Ice 15-20 minutes 3-4 times daily, Compress- wear the kade wrap as discussed as much as possible to help reduce swelling and pain, Elevate the extremity when at rest *Kade wrap is for support and help control swelling, use it except in the shower. Be sure that is not to tight but not to loose either *Elevate when resting Tylenol as directed on package for pain Immediately follow up with your family doctor for new or worsening of symptoms, or no noticeable improvement over the next 3-5 days or any worsening of pain or swelling Return if needed Straight to ER if any life threatening symptoms Referrals: Carrillo Dubon MD [Staff Physician] - Neris Steve [Primary Care Provider] - As needed (Follow up if no improvement for further testing and evaluation) Time of Disposition: 11:22 Medical Decision Making - Lv Inquiry Pt receiving controlled substance: No Lv was queried for this patient: No Vital Signs: 06/17/20 09:59 06/17/20 11:23 Temperature 97.5 F L 97.8 F Temperature Source Tympanic Tympanic Pulse Rate 87 Pulse Rate [Right] 75 Respiratory Rate 16 19 Blood Pressure 129/89 Blood Pressure [Right Arm] 120/80 Blood Pressure Mean [Right Arm] 93 Blood Pressure Source [Right Arm] Automatic Cuff Blood Pressure Position Sitting Blood Pressure Position [Right Arm] Sitting 02 Sat by Pulse Oximetry 92 L Oxygen Delivery Method Room Air Room Air Orders (Tests/Meds): ED MEDICATIONS Discontinued Medications Generic Name Dose Route Start Last Admin Trade Name Freq PRN Reason Stop Dose Admin Ketorolac Tromethamine 15 mg 06/17/20 11:04 06/17/20 11:13 Ketorolac 60mg/2ml Vial IM 06/17/20 11:05 15 mg ONCE ONE Administration - Radiology Data #1 Image(s): Knee (right), Foot/Toes Image Reviewed: Yes I have reviewed radiologist's interpretation IMPRESSION: Moderate to severe osteoarthritic changes. No definite acute fracture. Cortical step-off of the anterior distal femur possibly related to a spur. If pain persists, CT may confirm. Foot IMPRESSION: 1. No definite fracture. 2. Chronic osteoarthritic changes of the midfoot with hallux valgus and osteoarthritis at the 1st MTP joint. Subchondral cystic changes are present. #2 Image(s): Knee (left) Image Reviewed: Yes I have reviewed radiologist's interpretation IMPRESSION: No acute findings. #3 Image(s): Forearm Image Reviewed: Yes I have reviewed radiologist's interpretation IMPRESSION: No definite acute fracture. Questionable small cortical defects of the dorsal and mid aspect of the ulna Degenerative changes. See above for detail [facility] [place] - General Stated complaint: Fell out of w/chair right arm Time Seen by Provider: 06/17/20 10:04 Mode of Arrival: Wheelchair Source of Information: Patient Limitations: Physical Limitations Description of Symptoms (Recalled from Triage Doc. by RN): pt fell out of his wheel chair injuring his right arm and both knees. HEENT Symptoms (Recalled from RN notes): No Resp Symptoms (Recalled from RN notes): No Skin Symptoms (Recalled from RN notes): No MS Symptoms (Recalled from RN notes): Yes (bilateral knee pain and right arm pain) Functional Status (Recalled from RN notes): na - History of Present Illness Provider Complaint: Patient stat
--- NOTE | 2020-06-17 10:13 | XR_ITS ---
PROCEDURE: XR FOOT RT MIN 3V CLINICAL INDICATION: FALL Posttraumatic pain COMPARISON: No exams were available for comparison FINDINGS: Hallux valgus with osteoarthritis at the 1st MTP joint. Bunion formation is present. There is cortical lucency of the distal aspect of the 1st metatarsal laterally and the proximal aspect of the proximal phalanx of the great toe laterally. This may be due to subchondral cystic changes with osteoarthritis. There are degenerative changes in the midfoot at the tarsometatarsal junction. Subcortical cystic changes are present in the cuneiforms. IMPRESSION: 1. No definite fracture. 2. Chronic osteoarthritic changes of the midfoot with hallux valgus and osteoarthritis at the 1st MTP joint. Subchondral cystic changes are present. Dictated by: Rafat Kaur MD 06/17/2020 11:14 Rafat Kaur MD in [place] 06/17/2020 11:14
[2020-06-17 11:23] VITALS: BP 129/89; PULSE 87; RESP 19; TEMP 36.6
== END 2020-06-17 11:30 | disposition home or self-care (01) ==
PROVIDERS: Emergency Provider Nurse Practitioner; PCP Nurse Practitioner Family
DX: S63.501A Unspecified sprain of right wrist, initial encounter (principal); M25.561 Pain in right knee; M25.562 Pain in left knee; V00.811A Fall from moving wheelchair (powered), initial encounter; Y92.019 Unspecified place in single-family (private) house as the place of occurrence of the external cause; E78.5 Hyperlipidemia, unspecified; I10 Essential (primary) hypertension; E11.9 Type 2 diabetes mellitus without complications; Z96.641 Presence of right artificial hip joint; Z79.899 Other long term (current) drug therapy
CPT/HCPCS: G0463; 73090; 73562; 73630; 96372; 99202

== ENCOUNTER → 2020-07-08 12:52 | Outpatient (CLI) | payer MEDICARE, SELFPAY ==
[2020-07-08 13:40] LABS: NT Pro Brain Natriuretic Pep. 187 pg/mL (0-125)
== END ==
PROVIDERS: Visit Provider Internal Medicine Cardiovascular Disease
DX: I50.9 Heart failure, unspecified (principal)
CPT/HCPCS: 36415; 83880

== ENCOUNTER → 2020-07-15 07:21 | Outpatient (CLI) | payer MEDICARE, SELFPAY | PROVIDERS: PCP Nurse Practitioner Family; Visit Provider Internal Medicine Pulmonary Disease | DX: R06.00 Dyspnea, unspecified (principal) | CPT/HCPCS: 94060 ==

== ENCOUNTER → 2020-07-15 07:24 | Outpatient (CLI) | payer SELFPAY ==
--- NOTE | 2020-07-15 07:25 | CT_ITS ---
PROCEDURE: CT HEART W CALCIUM SCORE CLINICAL HISTORY: DM COMPARISON: No exams were available for comparison TECHNIQUE: Axial images obtained with sagittal and coronal reformats. All CT scans at the facility use one or more dose reduction, viz: automated exposure control, ma/kV adjustment per patient size (including targeted exams where dose is matched to indication, i.e. head), or iterative reconstruction technique. FINDINGS: Coronary artery calcium score is 186 Moderate calcific plaque burden with high cardiovascular disease risk. Incidental note made of old left-sided rib fractures and mild atelectatic or fibrotic change in the left lung base. IMPRESSION: Moderate calcific plaque burden with high cardiovascular disease risk Dictated by: Rafat Kaur MD 07/15/2020 08:36 Rafat Kaur MD in [place] 07/15/2020 08:36
--- NOTE | 2020-07-15 07:25 | XR_ITS ---
PROCEDURE: XR CHEST 2V CLINICAL HISTORY: Pneumonia follow up COMPARISON: CR CXR CHEST(2 VIEWS-NOT PORTABLE) from 12/31/2016 CR XR CHEST PORTABLE from 04/10/2020 CR XR CHEST 2V from 04/10/[address] HEART W CALCIUM SCORE from 07/15/2020 FINDINGS: Unremarkable cardiovascular structures. The lungs are clear without infiltrates, suspicious nodules, or pleural effusions. No acute bony abnormalities. IMPRESSION: No acute findings. Dictated by: Rafat Kaur MD 07/15/2020 10:24 Rafat Kaur MD in [facility] 07/15/2020 10:24
== END ==
PROVIDERS: PCP Nurse Practitioner Family; Visit Provider Internal Medicine Cardiovascular Disease
DX: J44.9 Chronic obstructive pulmonary disease, unspecified (principal); E11.9 Type 2 diabetes mellitus without complications; Z13.6 Encounter for screening for cardiovascular disorders; Z79.4 Long term (current) use of insulin
CPT/HCPCS: 71046; 75571